=== PATIENT | male | born 1960 | race Caucasian/White ===

== ENCOUNTER 2017-09-16 02:16 | Emergency (ER) | payer BC, SELFPAY ==
[2017-09-16 02:45] VITALS: BP 166/108; PULSE 66; RESP 14; TEMP 37; O2SAT 97; BMI 30.4
[2017-09-16 03:06] LABS: Basophils % 0.3 % (0.1-2.0); Eosinophils # 0.3 K/mm3 (0.0-0.4); Eosinophils % 3.7 % (0.1-12.0); Hematocrit 44.9 % (42.0-52.0); Hemoglobin 15.2 g/dL (14.1-18.0); Lymphocytes # 2.4 K/mm3 (0.7-4.5); Lymphocytes % 32.4 K/mm3 (10-50); Mean Corpuscular HGB Conc 33.9 g/dL (31.8-35.4); Mean Corpuscular Hemoglobin 31.3 pg (27.0-31.2); Mean Corpuscular Volume 92.3 fl (80-94); Mean Platelet Volume 8.3 fl (7.4-10.4); Monocytes # 0.5 K/mm3 (0.1-1.0); Monocytes % 6.8 % (1.7-9.3); Neutrophils # 4.3 K/mm3 (1.8-7.8); Neutrophils % 56.7 % (37.0-80.0); Platelet Count 175 K/mm3 (142-424); Red Blood Count 4.87 M/mm3 (4.60-6.20); Red Cell Distribution Width 12.8 % (11.5-17.5); White Blood Count 7.5 K/mm3 (4.8-10.8)
--- NOTE | 2017-09-16 03:07 | CT_ITS ---
CT head/brain wo con Ordering Physician: Tho Banks MD Patient Age: 57 years: Male HISTORY: ITS.REASON: nearsyncope/dizziness dizziness. Near-syncope TECHNIQUE: Axial CT head without contrast but bone and brain windows performed and submitted to PACS COMPARISON no:Previous CT head FINDINGS No hemorrhage. No mass effect. No mass lesion. No acute findings. No subdural collection. No territorial infarct. . Ventricles and basal cistern satisfactory. Posterior fossa unremarkable. Skull intact. Visualized paranasal sinuses are fairly clear with only some scant mucosal thickening at the posterior ethmoid air cells mastoid air cells, middle air and IACs unremarkable. Posterior fossa intact. Dense calcification at the vertebral arteries incidentally noted. Moderate calcification at the carotid siphons. IMPRESSION: No acute intracranial findings. Brain within normal limits. Skull intact Atherosclerotic calcification most evident the distal vertebral arteries and possibly carotid siphons.
[2017-09-16 03:19] LABS: Alanine Aminotransferase 37 U/L (12-78); Albumin Level 3.8 gm/dL (3.4-5.0); Albumin/Globulin Ratio 1.2 (1.1-1.8); Alkaline Phosphatase 96 U/L (46-116); Anion Gap 10.6 mEq/L (5-15); Aspartate Amino Transferase 22 U/L (15-37); Bilirubin,Total 0.7 mg/dL (0.2-1.0); Blood Urea Nitrogen 11 mg/dL (7-18); Calcium 8.5 mg/dL (8.5-10.1); Carbon Dioxide 27 mmol/L (21.0-32.0); Chloride 106 mmol/L (98-107); Creatinine Clearance Estimated 124 mL/min (0-300); Creatinine,Serum 0.93 mg/dL (0.70-1.30); Estimated Glomerular Filt Rate 84 ml/min (>60); GFR (African American) 102 ML/MIN (>60); Globulin 3.2 gm/dl (1.3-3.2); Glucose 110 mg/dL (74-106); Potassium 3.6 mmoL/L (3.5-5.1); Sodium 140 mmol/L (136-145)
[2017-09-16 03:31] LABS: Creatine Kinase 179 U/L (39-308); Creatine Kinase MB 3.5 mg/ml (0.0-3.6); Troponin I < 0.02 ng/ml (0.00-0.06)
--- NOTE | 2017-09-16 04:43 | [facility].EDDIZZ ---
ED Disposition Clinical Impression: Labyrinthitis Qualifiers: Laterality: unspecified laterality Qualified Code(s): H83.09 - Labyrinthitis, unspecified ear Disposition: Home, Self-Care Condition on Discharge: Good Instructions: DI for Labyrinthitis Additional Instructions: Please follow-up with Dr. Rip Kraft within the next 1-2 days if not better. If unable to see ENT specialist timely and if not better, please return to this emergency room for reevaluation. Prescriptions: Meclizine HCl [Meclizine 25mg Tab] 25 mg PO QID #28 tab Referrals: Josef Roberson MD [Primary Care Provider] - Rip Kraft MD [Staff Physician] - Time of Disposition: 04:43 - Critical Care Critical Care Time: No Attestation: On 09/16/17, the high probability of a clinically significant, sudden or life threatening deterioration of the following system(s) required my full and direct attention, intervention and personal management. The time I documented below is in addition to time spent performing reported procedures but includes the following listed in this critical care notation. Medical Decision Making - Medical Records Medical records reviewed: Yes: I reviewed the patient's medical records. Vital Signs: 09/16/17 02:45 09/16/17 04:53 Temperature 98.6 F 98 F Temperature Source Oral Oral Pulse Rate 56 L Pulse Rate [Right Brachial] 66 Respiratory Rate 14 16 Blood Pressure 140/72 Blood Pressure [Right Arm] 166/108 Blood Pressure Mean [Right Arm] 127 Blood Pressure Source Automatic Cuff Blood Pressure Source [Right Arm] Automatic Cuff Blood Pressure Position Sitting Blood Pressure Position [Right Arm] Supine 02 Sat by Pulse Oximetry 97 Oxygen Delivery Method Room Air Room Air - Lab Data Lab results reviewed: Yes: I reviewed the patient's lab results. Lab Results 09/16/17 03:00: WBC 7.5, RBC 4.87, Hgb 15.2, Hct 44.9, MCV 92.3, MCH 31.3 H, MCHC 33.9, RDW 12.8, Plt Count 175, MPV 8.3, Neut % (Auto) 56.7, Lymph % (Auto) 32.4, [place] % (Auto) 6.8, Eos % (Auto) 3.7, Baso % (Auto) 0.3, Neut # (Auto) 4.3, Lymph # (Auto) 2.4, [place] # (Auto) 0.5, Eos # (Auto) 0.3, Baso # (Auto) 0.0 09/16/17 03:00: Sodium 140, Potassium 3.6, Chloride 106, Carbon Dioxide 27, Anion Gap 10.6, BUN 11, Creatinine 0.93, Estimated Creat Clear 124, Estimated GFR 84, Est GFR ( Amer) 102, Glucose 110 H, Calcium 8.5, Total Bilirubin 0.7, AST 22, ALT 37, Alkaline Phosphatase 96, Total Protein 7.0, Albumin 3.8, Globulin 3.2, Albumin/Globulin Ratio 1.2 09/16/17 03:00: Total Creatine Kinase 179, CK-MB (CK-2) 3.5, CK-MB (CK-2) Rel Index 2.0, Troponin I < 0.02 Result diagrams: 09/16/17 03:00 09/16/17 03:00 Orders (Tests/Meds): ED MEDICATIONS Discontinued Medications Generic Name Dose Route Start Last Admin Trade Name Marcus PRN Reason Stop Dose Admin Meclizine HCl 25 mg 09/16/17 03:17 09/16/17 03:21 Antivert 25mg Tablet PO 09/16/17 03:18 25 mg ONCE ONE Administration ORDERS Category Date Time Status CT head/brain wo con Stat Cat Scan 09/16/17 03:07 Taken ECG Request by /Nse Stat Y 09/16/17 02:54 Ordered - CT Data CT Scan: Head Time Received: 04:[address] Reviewed: Yes: I have reviewed the patient's CT results, I have viewed the radiologist's interpretation Preliminary Findings: Normal/NAD - Abelardo Inquiry Pt receiving controlled substance: No - Reevaluation(s) Time: 04:40 Reevaluation #1: Upon reevaluation patient appears medically stable, in no acute distress. Advise patient of results obtained, need to follow-up with ENT specialist, Dr. Rip Kraft, as per discharge instructions. Dizzy HPI - General Chief Complaint: Syncope Stated Complaint: Spell where almost blacked out Mode of Arrival: Family Vehicle Limitations: No Limitations Description of Symptoms (Recalled from ER Triage Doc. by RN): C/O NEAR SYNCOPE WHILE BOWLING TONIGHT. STATES EVERYTHING JUST WENT BLACK. HX HTN - History of Present
[2017-09-16 04:53] VITALS: BP 140/72; PULSE 56; RESP 16; TEMP 36.6; O2SAT 95
== END 2017-09-16 04:55 | disposition home or self-care (01) ==
PROVIDERS: Emergency Provider Emergency Medicine; Family Provider Internal Medicine Adolescent Medicine; PCP Internal Medicine Adolescent Medicine
DX: H83.09 Labyrinthitis, unspecified ear (principal); I10 Essential (primary) hypertension; F17.210 Nicotine dependence, cigarettes, uncomplicated
CPT/HCPCS: 70450; 80053; 82550; 82553; 84484; 85025; 93005; 93041; 99282

== ENCOUNTER → 2017-09-23 07:58 | Outpatient (CLI) | payer BC, SELFPAY ==
--- NOTE | 2017-09-23 | CA_ITS ---
PROCEDURE: 2-D M-mode and color Doppler study INDICATIONS FOR THE TEST: Chest pain COPD Heart Murmur Tobacco Smoking+ Palpitations+ Fatigue Syncopenear Edema Hypertension+Diabetes Mellitus Rheumatic Fever SOB THOMAS+Obesity Hyperlipidemia+ Family History HD+ Additional History dizziness, hx of dysrhythmia Bubble study negative with and without valsalva PATIENT INFORMATION HEIGHT: 71 WEIGHT: 215 GENDER: Male B/P: 150/98 2-D/M-MODE INTERPRETATION: 2-D MEASUREMENTS OBSERVED VALUES IN CMS Right Ventricular Dimension (RVDd) 2.5 Interventricular Septum (Thickness)(IVsd) 1.0 Left Ventricular Internal Dimensions(LVIDd) 4.4 Left Ventricular Posterior Wall (Thickness)(LVPWd) 1.0 Aortic Root 3.4 Aortic Cusp Separation 2.5 Left Atrial Dimensions (LAD) 3.9 2D 1. Left atrium is mildly enlarged, left ventricle is normal size, there is mild concentric left ventricular hypertrophy, visually estimated ejection fraction 55% with no obvious regional wall motion abnormality. 2. The right atrium and right ventricle are normal size and contractility. 3. The aortic valve is minimally thickened and fibrosed. 4. The mitral and tricuspid valvular grossly normal. 5. The pulmonic valve is poorly visualized. 6. No significant pericardial effusion noted. DOPPLER INTERROGATION: Doppler interrogation of the aortic, mitral and tricuspid valvular presence of mild mitral and tricuspid regurgitation, tricuspid regurgitant jet velocity is insufficient for calculation of the right ventricular systolic pressure, grade 1 diastolic dysfunction seen without tissue Doppler evidence of raised left atrial pressure. Agitated saline contrast study fails to identify intracardiac shunt. CONCLUSION: 1. Mildly enlarged left atrium, normal left ventricular size, mild concentric left ventricular hypertrophy, visually estimated ejection fraction of 55% with no obvious regional wall motion abnormality, grade 1 diastolic dysfunction seen without tissue Doppler evidence of raised left atrial pressure. 2. Mild mitral and tricuspid regurgitation. 3. Agitated saline contrast study fails to identify intracardiac shunt.
--- NOTE | 2017-09-23 | CI_ITS ---
Cerebrovascular Exam Indications: 435.9 Unspecified transient cerebral ischemia. IMPRESSIONS 1. The bilateral vertebral arteries are patent with normal antegrade flow. 2. Study suggests less than 20% stenosis involving the right internal carotid artery. 3. Study suggests 20-49% stenosis involving the left internal carotid artery. History: Transient ischemic attack. Risk factors: Current tobacco use. Hypertension. Hyperlipidemia. Near syncopal episode 08/15/17. Carotid duplex study. Complete study and Doppler flow study including spectral analysis, color and flowers scale imaging. Location: Vascular laboratory. Patient status: Outpatient. Tables: Arterial flow: + +--------+--------+ Location V sys V ed + +--------+--------+ Right CCA - proximal 105cm/s 19.6cm/s + +--------+--------+ Right CCA - distal 82.5cm/s 28.3cm/s + +--------+--------+ Right ECA 73.5cm/s -------- + +--------+--------+ Right ICA - proximal 59.1cm/s 22cm/s + +--------+--------+ Right ICA - mid 75.4cm/s 37.7cm/s + +--------+--------+ Right ICA - distal 57.8cm/s 13.2cm/s + +--------+--------+ Right vertebral 47.1cm/s -------- + +--------+--------+ Left CCA - proximal 113cm/s 30.2cm/s + +--------+--------+ Left CCA - distal 84.2cm/s 25.1cm/s + +--------+--------+ Left ECA 77.3cm/s -------- + +--------+--------+ Left ICA - proximal 88.6cm/s 30.8cm/s + +--------+--------+ Left ICA - mid 84.2cm/s 39.6cm/s + +--------+--------+ Left ICA - distal 86.6cm/s 40.3cm/s + +--------+--------+ Left vertebral 47.4cm/s -------- + +--------+--------+ Velocity ratios: + + + + + + Right, V sys Right, V ed Left, V sys Left, V ed + + + + + + Max ICA/dist CCA 0.91 1.33 1.05 1.61 + + + + + + (Report amended ) Electronically signed by: Mc Starr [id number]
== END ==
PROVIDERS: Family Provider Internal Medicine Adolescent Medicine; PCP Internal Medicine Adolescent Medicine; Visit Provider Internal Medicine Adolescent Medicine
DX: R55 Syncope and collapse (principal); R42 Dizziness and giddiness; R00.2 Palpitations
CPT/HCPCS: 93225; 93226; 93306; 93880

== ENCOUNTER → 2017-10-28 20:09 | Outpatient (REF) | payer BC, SELFPAY | LOC: LAB 20:09 | PROVIDERS: Visit Provider Nurse Practitioner Family ==